=== PATIENT | male | born 1945 | race Hispanic/Latino ===

== ENCOUNTER 2021-04-28 07:42 | Day surgery (SDC) | payer MEDICARE ==
[2021-04-26 14:47] LABS: BASOPHILS % (AUTO) 0.8 % (0.0-5.0); EOSINOPHILS % (AUTO) 4.3 % (0.0-8.0); HEMATOCRIT 40.5 % (42-54); LYMPHOCYTES % (AUTO) 25.2 % (21.0-51.0); MEAN CORPUSCULAR HEMOGLOBIN 31.4 pg (27.0-33.0); MEAN CORPUSCULAR HGB CONC 33.8 g/dL (32.0-36.0); MEAN CORPUSCULAR VOLUME 92.9 fL (79-99); MONOCYTES % (AUTO) 11.4 % (3.0-13.0); NEUTROPHILS % (AUTO) 58.1 % (40.0-77.0); PLATELET COUNT (AUTO) 170 K/uL (130-400); RED BLOOD CELL COUNT(AUTO) 4.36 MIL/uL (4.50-6.20); RED CELL DISTRIBUTION WIDTH 12.9 % (11.0-15.5); WHITE BLOOD COUNT (AUTO) 5.1 K/uL (4.8-10.8)
[2021-04-26 14:51] LABS: APPEARANCE,URINE Clear (CLEAR); BILIRUBIN,URINE Negative (NEGATIVE); COLOR,URINE Yellow (YELLOW); GLUCOSE, URINE (UA) Negative (NEGATIVE); KETONES,URINE Negative (NEGATIVE); LEUKOCYTE ESTERASE ,URINE Negative (NEGATIVE); NITRATE,URINE Negative (NEGATIVE); OCCULT BLOOD,URINE Negative (NEGATIVE); PH,URINE 5.5 (5.0-8.0); PROTEIN,URINE POS 1+ mg/dL (NEGATIVE)
[2021-04-26 14:54] LABS: CREATININE 1.3 mg/dL (0.5-1.5); POTASSIUM 3.6 mmol/L (3.5-5.1)
[2021-04-26 14:57] LABS: INR 1.1 (0.85-1.15); PROTHROMBIN TIME 11.9 SEC (9.6-11.6)
[2021-04-26 14:58] LABS: PARTIAL THROMBOPLASTIN TIME 31.8 SEC (26.3-35.5)
[2021-04-26 15:24] LABS: BACTERIA,URINE Rare /HPF (None Seen); RBC,URINE 0-1 /HPF (0-1); SQUAMOUS EPITHELIAL CELL,UR Rare /HPF (0-2); WBC,URINE 0-1 /HPF (0-1)
[~2021-04-28] VITALS: Ht 182.9 cm; Wt 87.5 kg
[2021-04-28] VITALS (9 sets, daily range): BP systolic 119–157; BP diastolic 49–58
[~2021-04-28 07:42] MED LIST: AMLO2.5T4 PO; APIX2.5T PO; ATOR10TA69 PO; CHLOROTHALIDONE PO; LISI40TA9 PO; METO-391 PO
[2021-04-28] MEDS ORDERED: 0.9%NACL 1000ML 1,000 ML IV ONE (09:34)
[2021-04-28] MEDS ORDERED: BIVALIRUDIN 250 MG/VIAL IV ONE (13:02)
[2021-04-28] MEDS ORDERED: HEPARIN 10,000 UNIT/10ML (1,000 UNIT/ML) VIAL ONE (13:02)
[2021-04-28] MEDS ORDERED: LIDOCAINE HCL 400MG/20ML VIAL ONE (13:03)
[2021-04-28] MEDS ORDERED: IOHEXOL-350 50ML VIAL IV ONE ×2 (13:03→13:10)
[2021-04-28] MEDS ORDERED: IOHEXOL 350 MG/ML 100ML INFUS..BTL IV ONE (13:03)
[2021-04-28] MEDS ORDERED: NITROGLYCERIN 50MG VIAL IV ONE (13:03)
[2021-04-28] MEDS ORDERED: MEPERIDINE-PF 25 MG/ML SYG ONE ×2 (13:11→13:29)
[2021-04-28] MEDS ORDERED: MIDAZOLAM HCL 1 MG/ML 2ML VIAL ONE ×2 (13:11→13:29)
[2021-04-28] MEDS ORDERED: 0.9%NACL 1000ML 1,000 ML IV SCH (14:00)
[2021-06-30] MEDS ORDERED: APIX5TAB PO (16:58)
[2021-06-30] MEDS ORDERED: BIMA12.5OS OD (16:58)
[2021-06-30] MEDS ORDERED: CHLO25TA3 PO (16:58)
[2021-06-30] MEDS ORDERED: BRIM5DRO OP (16:58)
== END 2021-04-28 18:20 | disposition home or self-care (01) ==
LOC: DAH 07:42
PROVIDERS: ATTEND Internal Medicine Cardiovascular Disease
DX: I25.10 Atherosclerotic heart disease of native coronary artery without angina pectoris (principal); E78.5 Hyperlipidemia, unspecified; I11.0 Hypertensive heart disease with heart failure; I48.91 Unspecified atrial fibrillation; I35.1 Nonrheumatic aortic (valve) insufficiency; I50.9 Heart failure, unspecified; Z79.01 Long term (current) use of anticoagulants; Z79.899 Other long term (current) drug therapy
CPT/HCPCS: 36415; 71045; 80048; 81001; 85025; 85610; 85730; 93005; 93458; 93567; A4215; A4216; A4221; A4222; A4223 ×3; A4606; A4663; C1760; C1769; C1894 ×2; J1644; J2175 ×2; J2250 ×2; J3490 ×2; J7030; Q9965; Q9967 ×3; 99156; 99157; J0583

== ENCOUNTER → 2021-05-26 | Outpatient (CLI) | payer MEDICARE ==
[~2021-05-26] MED LIST changes: +IOHEXOL-350 75 ML VIAL IV ONE
== END | disposition home or self-care (01) ==
LOC: RAH 09:20
PROVIDERS: ATTEND Thoracic Surgery (Cardiothoracic Vascular Surgery)
DX: I71.2 Thoracic aortic aneurysm, without rupture (principal); M47.815 Spondylosis without myelopathy or radiculopathy, thoracolumbar region; I35.1 Nonrheumatic aortic (valve) insufficiency
CPT/HCPCS: 71275; Q9967

== ENCOUNTER 2021-07-01 06:41 | Day surgery (SDC) | payer MEDICARE ==
[2021-06-29 10:07] LABS: BASOPHILS % (AUTO) 0.9 % (0.0-5.0); EOSINOPHILS % (AUTO) 3.4 % (0.0-8.0); LYMPHOCYTES % (AUTO) 17.3 % (21.0-51.0); MEAN CORPUSCULAR HGB CONC 34.3 g/dL (32.0-36.0); MEAN CORPUSCULAR VOLUME 90.5 fL (79-99); MONOCYTES % (AUTO) 11.5 % (3.0-13.0); NEUTROPHILS % (AUTO) 66.7 % (40.0-77.0); PLATELET COUNT (AUTO) 190 K/uL (130-400); RED BLOOD CELL COUNT(AUTO) 4.42 MIL/uL (4.50-6.20); RED CELL DISTRIBUTION WIDTH 13.2 % (11.0-15.5); WHITE BLOOD COUNT (AUTO) 5.8 K/uL (4.8-10.8)
[2021-06-29 10:16] LABS: CREATININE 1.2 mg/dL (0.5-1.5); POTASSIUM 3.4 mmol/L (3.5-5.1)
[2021-06-29 10:17] LABS: INR 1.09 (0.85-1.15); PROTHROMBIN TIME 11.8 SEC (9.6-11.6)
[2021-06-29 10:19] LABS: PARTIAL THROMBOPLASTIN TIME 31.6 SEC (26.3-35.5)
[2021-06-30 13:31] VITALS: BP 119/50
[~2021-07-01] VITALS: Ht 188 cm; Wt 88.7 kg
[2021-07-01] VITALS (15 sets, daily range): BP systolic 111–144; BP diastolic 41–73
[~2021-07-01 06:41] MED LIST changes: -APIX2.5T PO; +APIX5TAB PO; +BIMA12.5OS OD; +BRIM5DRO OP; +CHLO25TA3 PO; -CHLOROTHALIDONE PO; -IOHEXOL-350 75 ML VIAL IV ONE
[2021-07-01] MEDS ORDERED: 0.9%NACL 1000ML 1,000 ML IV ONE (08:05)
[2021-07-01] MEDS ORDERED: LIDOCAINE HCL 2% VISCOUS 15 ML UDCUP ONE (08:23)
[2021-07-01] MEDS ORDERED: FLUMAZENIL 0.1MG/1ML 5ML VIAL IV ONE (08:26)
[2021-07-01] MEDS ORDERED: NALOXONE HCL 0.4 MG/1 ML ML ONE (08:26)
[2021-07-01] MEDS ORDERED: FENTANYL CITRATE PF 50 MCG/1 ML 2ML VIAL ONE (08:26)
[2021-07-01] MEDS ORDERED: MIDAZOLAM HCL 1 MG/ML 2ML VIAL ONE (08:27)
== END 2021-07-01 16:00 | disposition home or self-care (01) ==
LOC: DAH 06:41
PROVIDERS: ATTEND Internal Medicine Cardiovascular Disease
DX: I48.0 Paroxysmal atrial fibrillation (principal); I35.1 Nonrheumatic aortic (valve) insufficiency; I11.0 Hypertensive heart disease with heart failure; I50.9 Heart failure, unspecified; E78.5 Hyperlipidemia, unspecified; Z79.01 Long term (current) use of anticoagulants; Z79.899 Other long term (current) drug therapy; Z98.890 Other specified postprocedural states
CPT/HCPCS: 36415; 80048; 85025; 85610; 85730; 93005; 93313; A4215; A4216; A4221; A4222; A4223 ×3; A4606; A4615; A4663; A7002; J2250; J3010; J7030; 93312; 99152; J2310; J3490

== ENCOUNTER → 2021-11-16 | Outpatient (CLI) | payer MEDICARE ==
[~2021-11-16] MED LIST changes: -AMLO2.5T4 PO; +AMLO5TAB4 PO; -CHLO25TA3 PO; +FURO20TA6 PO; -LISI40TA9 PO; -METO-391 PO; +METO25 PO; +POTA-192 PO; +Sulfamethox-Tmp Ds 800/160 Tab PO
== END | disposition home or self-care (01) ==
LOC: SHCH 09:38
PROVIDERS: ATTEND Internal Medicine Cardiovascular Disease
DX: I08.3 Combined rheumatic disorders of mitral, aortic and tricuspid valves (principal); I11.9 Hypertensive heart disease without heart failure; E78.5 Hyperlipidemia, unspecified
CPT/HCPCS: 93306

== ENCOUNTER 2022-04-26 06:05 | Day surgery (SDC) | payer MEDICARE ==
[2022-04-25 13:04] LABS: BASOPHILS % (AUTO) 0.9 % (0.0-5.0); EOSINOPHILS % (AUTO) 3.3 % (0.0-8.0); HEMATOCRIT 43.8 % (42-54); LYMPHOCYTES % (AUTO) 20.4 % (21.0-51.0); MEAN CORPUSCULAR HEMOGLOBIN 31.1 pg (27.0-33.0); MEAN CORPUSCULAR HGB CONC 33.3 g/dL (32.0-36.0); MEAN CORPUSCULAR VOLUME 93.2 fL (79-99); MONOCYTES % (AUTO) 12.5 % (3.0-13.0); NEUTROPHILS % (AUTO) 62.7 % (40.0-77.0); PLATELET COUNT (AUTO) 198 K/uL (130-400); RED CELL DISTRIBUTION WIDTH 13.6 % (11.0-15.5); WHITE BLOOD COUNT (AUTO) 5.4 K/uL (4.8-10.8)
[2022-04-25 13:19] LABS: ALBUMIN 3.7 g/dL (3.5-5.0); CREATININE 1.6 mg/dL (0.5-1.5); POTASSIUM 3.7 mmol/L (3.5-5.1)
[2022-04-25 13:47] LABS: THYROID STIMULATING HORMONE 2.63 uIU/mL (0.36-3.74)
[2022-04-25 14:25] VITALS: BP 146/91
[~2022-04-26] VITALS: Ht 182.9 cm; Wt 91.2 kg
[2022-04-26] VITALS (21 sets, daily range): BP systolic 91–128; BP diastolic 55–88
[~2022-04-26 06:05] MED LIST changes: +AMIO200T68 PO; -AMLO5TAB4 PO; +ATOR10 PO; -ATOR10TA69 PO; +FURO20TA4 PO; -FURO20TA6 PO; -METO25 PO; +METO25TA6 PO; -POTA-192 PO; +POTA-79 PO; -Sulfamethox-Tmp Ds 800/160 Tab PO
[2022-04-26] MEDS ORDERED: 0.9%NACL 1000ML 1,000 ML IV ONE (06:33)
[2022-04-26] MEDS ORDERED: PROPOFOL 10 MG/ML 20ML VIAL IV ONE (08:12)
[2022-04-26] MEDS ORDERED: AMIO200T68 PO (08:53)
[2022-04-26] MEDS ORDERED: ACET-2123 PO (09:33)
== END 2022-04-26 10:20 | disposition home or self-care (01) ==
LOC: DAH 06:05
PROVIDERS: ATTEND Internal Medicine Cardiovascular Disease
DX: I48.19 Other persistent atrial fibrillation (principal); Z20.822 Contact with and (suspected) exposure to COVID-19; E66.9 Obesity, unspecified; I10 Essential (primary) hypertension; I42.8 Other cardiomyopathies; E78.5 Hyperlipidemia, unspecified; Z79.82 Long term (current) use of aspirin; Z79.899 Other long term (current) drug therapy; Z98.890 Other specified postprocedural states; Z68.26 Body mass index [BMI] 26.0-26.9, adult
CPT/HCPCS: 87426; 84443; 80053; 85025; 36415; 92960; 93005 ×2; J7030; J2704; A4215; A4222; A4221; A4663; A4216; A4606; A4223 ×3; 99152

== ENCOUNTER 2022-07-27 10:45 | Inpatient (IN) | payer OTHER, MEDICARE ==
[~2022-07-27] VITALS: Ht 188 cm; Wt 77.8 kg
[2022-07-27 11:25] LABS: BASOPHILS % (AUTO) 0.2 % (0.0-5.0); EOSINOPHILS % (AUTO) 0.3 % (0.0-8.0); LYMPHOCYTES % (AUTO) 8.6 % (21.0-51.0); MEAN CORPUSCULAR HEMOGLOBIN 31.7 pg (27.0-33.0); MEAN CORPUSCULAR HGB CONC 34.1 g/dL (32.0-36.0); MONOCYTES % (AUTO) 7.8 % (3.0-13.0); NEUTROPHILS % (AUTO) 82.2 % (40.0-77.0); PLATELET COUNT (AUTO) 137 K/uL (130-400); RED BLOOD CELL COUNT(AUTO) 3.44 MIL/uL (4.50-6.20); RED CELL DISTRIBUTION WIDTH 13.9 % (11.0-15.5); WHITE BLOOD COUNT (AUTO) 14.6 K/uL (4.8-10.8)
[2022-07-27 11:40] LABS: CREATININE 1.9 mg/dL (0.5-1.5); POTASSIUM 4.3 mmol/L (3.5-5.1)
[2022-07-27 11:46] LABS: ALBUMIN 2.6 g/dL (3.5-5.0); TOTAL PROTEIN, SERUM 7.1 g/dL (6.0-8.3)
[2022-07-27 12:08] LABS: APPEARANCE,URINE CLOUDY (CLEAR); BILIRUBIN,URINE NEGATIVE (NEGATIVE); COLOR,URINE YELLOW (YELLOW); GLUCOSE, URINE (UA) NEGATIVE (NEGATIVE); KETONES,URINE NEGATIVE (NEGATIVE); LEUKOCYTE ESTERASE ,URINE 500 Leu/uL (NEGATIVE); NITRATE,URINE NEGATIVE (NEGATIVE); OCCULT BLOOD,URINE NEGATIVE (NEGATIVE); PROTEIN,URINE 10 mg/dL (NEGATIVE); UROBILINOGEN,URINE 0.2 mg/dL (0.2-1.0)
[2022-07-27 12:12] LABS: BACTERIA,URINE FEW /HPF (None Seen); MUCUS,URINE RARE LPF (None Seen); SQUAMOUS EPITHELIAL CELL,UR RARE /HPF (0-2); WBC,URINE 26-50 /HPF (0-1)
[2022-07-27] MEDS ORDERED: 0.9% NACL 250ML 250 ML IV SCH (13:00)
[2022-07-27] MEDS ORDERED: CEFTRIAXONE 1G VIAL IV SCH (16:00)
[2022-07-27] MEDS ORDERED: GUAIFENESIN-DM 200/20 MG 10 ML PO PRN (16:00)
[2022-07-27] MEDS ORDERED: POTASSIUM CHLORIDE 20MEQ/100ML 100 ML IV PRN (16:00)
[2022-07-27] MEDS ORDERED: GLUCAGON 1MG KIT 1 MG ML IM PRN (16:00)
[2022-07-27] MEDS ORDERED: HYDROMORPHONE 1 MG INJ IV PRN (16:00)
[2022-07-27] MEDS ORDERED: NITROGLYCERIN 0.4 MG SL TAB SL PRN (16:00)
[2022-07-27] MEDS ORDERED: LACTULOSE 20 GM/30 ML UDCUP PO PRN (16:00)
[2022-07-27] MEDS ORDERED: LIDOCAINE HCL-MPF 1% 2ML VIAL IV PRN (16:00)
[2022-07-27] MEDS ORDERED: DiphenhydrAMINE HCL 50 MG/ML VIAL IV PRN (16:00)
[2022-07-27] MEDS ORDERED: KCL 20 MEQ ERTAB PO PRN (16:00)
[2022-07-27] MEDS ORDERED: MAG/ALUM/SIMETH 30 ML UDCUP PO PRN (16:00)
[2022-07-27] MEDS ORDERED: ACETAMINOPHEN 325 MG TAB PO PRN (16:00)
[2022-07-27] MEDS ORDERED: MAGNESIUM 2GM PREMIX 50ML 50 ML IV PRN (16:00)
[2022-07-27] MEDS ORDERED: HYDROCODONE/ACETAMINOPHEN 5/325 MG TAB PO PRN ×2 (16:00)
[2022-07-27] MEDS ORDERED: DIPHENHYDRAMINE HCL 25 MG CAPSULE PO PRN (16:00)
[2022-07-27] MEDS ORDERED: ONDANSETRON 4MG INJ IV PRN (16:00)
[2022-07-27] MEDS ORDERED: DEXTROSE 50%-WATER 50 ML DISP.SYRIN IV PRN (16:00)
[2022-07-27] MEDS: 0.9%NACL 1000ML 1,000 ML IV SCH ×2 (16:07→23:09)
[2022-07-27] MEDS: FAMOTIDINE 20MG TAB PO SCH (16:08)
[2022-07-27] MEDS: INSULIN HUMULIN R 100 UNIT/ML 3ML SQ SCH ×2 (16:23→20:51)
[2022-07-27] MEDS ORDERED: FAMOTIDINE 20MG VIAL IV SCH (21:00)
[2022-07-27] MEDS ORDERED: HEPARIN 5,000 UNIT VIAL SQ SCH (21:00)
[2022-07-27 22:10] VITALS: BP 103/72
[2022-07-27] MEDS ORDERED: SENN8.6T32 PO (23:09)
[2022-07-27] MEDS ORDERED: ATOR10 PO (23:09)
[2022-07-27] MEDS ORDERED: ASPI-1197 PO (23:09)
[2022-07-27] MEDS ORDERED: DULO30CA52 PO (23:09)
[2022-07-27] MEDS ORDERED: POLY17PO4 PO (23:09)
[2022-07-27] MEDS ORDERED: GABA-529 PO (23:09)
[2022-07-27] MEDS ORDERED: SPIR25TA6 PO (23:09)
[2022-07-27] MEDS ORDERED: LUBI24CA9 PO (23:09)
[2022-07-27] MEDS ORDERED: SIME125C81 PO (23:09)
[2022-07-27] MEDS ORDERED: FURO40TA5 PO (23:09)
[2022-07-27] MEDS ORDERED: DRON10CA5 PO (23:09)
[2022-07-27] MEDS ORDERED: POTA-79 PO (23:09)
[2022-07-27] MEDS ORDERED: APIX2.5T PO (23:09)
[2022-07-27] MEDS ORDERED: LATA7.5D OP (23:09)
[2022-07-27] MEDS ORDERED: PANT40TA54 PO (23:09)
[2022-07-27] MEDS ORDERED: FOLI0.4T6 PO (23:09)
[2022-07-27] MEDS ORDERED: TAMS-1 PO (23:09)
[2022-07-27] MEDS ORDERED: DOCU100C33 PO (23:09)
[2022-07-28 03:45] VITALS: BP 97/62
[2022-07-28 05:28] LABS: BASOPHILS % (AUTO) 0.2 % (0.0-5.0); EOSINOPHILS % (AUTO) 0.9 % (0.0-8.0); HEMATOCRIT 29.6 % (42-54); LYMPHOCYTES % (AUTO) 8.8 % (21.0-51.0); MEAN CORPUSCULAR HEMOGLOBIN 31.1 pg (27.0-33.0); MEAN CORPUSCULAR HGB CONC 33.1 g/dL (32.0-36.0); MONOCYTES % (AUTO) 7.2 % (3.0-13.0); NEUTROPHILS % (AUTO) 82.2 % (40.0-77.0); PLATELET COUNT (AUTO) 137 K/uL (130-400); RED BLOOD CELL COUNT(AUTO) 3.15 MIL/uL (4.50-6.20); RED CELL DISTRIBUTION WIDTH 14.1 % (11.0-15.5)
[2022-07-28 05:38] LABS: INR 1.07 (0.85-1.15); PROTHROMBIN TIME 11.6 SEC (9.6-11.6)
[2022-07-28 05:40] LABS: PARTIAL THROMBOPLASTIN TIME 34.3 SEC (26.3-35.5)
[2022-07-28 05:51] LABS: ALBUMIN 2.2 g/dL (3.5-5.0); CREATININE 1.4 mg/dL (0.5-1.5); MAGNESIUM 1.9 mg/dL (1.80-2.40); PHOSPHORUS 3.9 mg/dL (2.5-4.9); POTASSIUM 3.9 mmol/L (3.5-5.1); THYROID STIMULATING HORMONE 2.15 uIU/mL (0.36-3.74); TOTAL PROTEIN, SERUM 6.4 g/dL (6.0-8.3)
[2022-07-28] MEDS: INSULIN HUMULIN R 100 UNIT/ML 3ML SQ SCH ×3 (06:18→21:00)
[2022-07-28] MEDS: 0.9%NACL 1000ML 1,000 ML IV SCH (06:18)
[2022-07-28 08:00] VITALS: BP 94/63
[2022-07-28] MEDS: LUBIPROSTONE 24 MCG CAP PO SCH ×3 (09:35→21:02)
[2022-07-28] MEDS: ASPIRIN 81MG CHEW TAB PO SCH (09:35)
[2022-07-28] MEDS: FAMOTIDINE 20MG TAB PO SCH (09:35)
[2022-07-28] MEDS: FUROSEMIDE 40 MG TABLET PO SCH ×2 (09:36→21:01)
[2022-07-28] MEDS: TAMSULOSIN HCL 0.4 MG CAP.ER.24H PO SCH (09:37)
[2022-07-28] MEDS: KCL 20 MEQ ERTAB PO SCH (09:37)
[2022-07-28] MEDS: FOLIC ACID 1 MG TABLET PO SCH (09:38)
[2022-07-28] MEDS: APIXABAN 2.5 MG TABLET PO SCH ×2 (09:38→21:02)
[2022-07-28] MEDS: POLYETHYLENE GLYCOL 3350 17 GM POWD.PACK PO SCH (09:38)
[2022-07-28] MEDS: DULOXETINE HCL 30 MG CAP PO SCH (09:39)
[2022-07-28] MEDS: DOCUSATE SODIUM 100 MG CAP PO SCH ×4 (09:39→21:02)
[2022-07-28] MEDS: GABAPENTIN 300 MG CAPSULE PO SCH ×2 (09:40→21:02)
[2022-07-28 12:00] VITALS: BP 85/63
[2022-07-28] MEDS: ZOSYN 3.375GM +NS 50ML IVPB SCH ×2 (14:41→21:03)
[2022-07-28] MEDS: ACETAMINOPHEN 325 MG TAB PO PRN (15:48)
[2022-07-28 16:00] VITALS: BP 116/76
[2022-07-28 20:00] VITALS: BP 92/64
[2022-07-28] MEDS: LATANOPROST 2.5 ML DROPS OP SCH (21:00)
[2022-07-28] MEDS: ATORVASTATIN 10 MG TABLET PO SCH (21:01)
[2022-07-28] MEDS: SPIRONOLACTONE 25 MG TAB PO SCH (21:02)
[2022-07-28 23:25] VITALS: BP 92/62
[2022-07-29] MEDS: 0.9%NACL 1000ML 1,000 ML IV SCH ×5 (00:20→22:24)
[2022-07-29 03:59] VITALS: BP 97/64
[2022-07-29] MEDS: ZOSYN 3.375GM +NS 50ML IVPB SCH (05:23)
[2022-07-29 05:45] LABS: BASOPHILS % (AUTO) 0.4 % (0.0-5.0); EOSINOPHILS % (AUTO) 3.3 % (0.0-8.0); HEMATOCRIT 28.8 % (42-54); LYMPHOCYTES % (AUTO) 8.5 % (21.0-51.0); MEAN CORPUSCULAR HEMOGLOBIN 31.5 pg (27.0-33.0); MEAN CORPUSCULAR HGB CONC 32.6 g/dL (32.0-36.0); MEAN CORPUSCULAR VOLUME 96.6 fL (79-99); MONOCYTES % (AUTO) 9.8 % (3.0-13.0); NEUTROPHILS % (AUTO) 77.3 % (40.0-77.0); PLATELET COUNT (AUTO) 135 K/uL (130-400); RED BLOOD CELL COUNT(AUTO) 2.98 MIL/uL (4.50-6.20); RED CELL DISTRIBUTION WIDTH 13.7 % (11.0-15.5); WHITE BLOOD COUNT (AUTO) 6.9 K/uL (4.8-10.8)
[2022-07-29 06:04] LABS: ALBUMIN 2.1 g/dL (3.5-5.0); CREATININE 1.4 mg/dL (0.5-1.5); MAGNESIUM 1.9 mg/dL (1.80-2.40); POTASSIUM 3.6 mmol/L (3.5-5.1); TOTAL PROTEIN, SERUM 6.2 g/dL (6.0-8.3)
[2022-07-29] MEDS: INSULIN HUMULIN R 100 UNIT/ML 3ML SQ SCH ×4 (06:48→21:00)
[2022-07-29 08:00] VITALS: BP 98/62
[2022-07-29] MEDS: POLYETHYLENE GLYCOL 3350 17 GM POWD.PACK PO SCH ×2 (09:00→09:15)
[2022-07-29] MEDS: DOCUSATE SODIUM 100 MG CAP PO SCH ×4 (09:00→21:00)
[2022-07-29] MEDS: FUROSEMIDE 40 MG TABLET PO SCH ×2 (09:09→22:19)
[2022-07-29] MEDS: FAMOTIDINE 20MG TAB PO SCH (09:10)
[2022-07-29] MEDS: GABAPENTIN 300 MG CAPSULE PO SCH ×2 (09:10→22:19)
[2022-07-29] MEDS: KCL 20 MEQ ERTAB PO SCH (09:13)
[2022-07-29] MEDS: TAMSULOSIN HCL 0.4 MG CAP.ER.24H PO SCH (09:15)
[2022-07-29] MEDS: APIXABAN 2.5 MG TABLET PO SCH (09:17)
[2022-07-29] MEDS: LUBIPROSTONE 24 MCG CAP PO SCH ×2 (09:35→21:00)
[2022-07-29] MEDS: ASPIRIN 81MG CHEW TAB PO SCH (09:36)
[2022-07-29] MEDS: FOLIC ACID 1 MG TABLET PO SCH (09:36)
[2022-07-29] MEDS: DULOXETINE HCL 30 MG CAP PO SCH (09:36)
[2022-07-29] MEDS: MEROPENEM 1 GM VIAL IVPB SCH ×2 (11:07→22:15)
[2022-07-29 11:36] LABS: INR 1.1 (0.85-1.15); PROTHROMBIN TIME 11.9 SEC (9.6-11.6)
[2022-07-29 11:37] LABS: PARTIAL THROMBOPLASTIN TIME 33.6 SEC (26.3-35.5)
[2022-07-29 12:00] VITALS: BP 102/71
[2022-07-29] MEDS: OXYMETAZOLINE HCL SPRAY 15 ML BOTTLE EN SCH ×2 (13:35→21:00)
[2022-07-29] MEDS: ACETAMINOPHEN 325 MG TAB PO PRN (15:13)
[2022-07-29 16:00] VITALS: BP 135/65
[2022-07-29] MEDS ORDERED: COMB5OS OD (16:20)
[2022-07-29 19:50] VITALS: BP 115/78
[2022-07-29] MEDS ORDERED: OXYMETAZOLINE HCL SPRAY 15 ML BOTTLE EN SCH (21:00)
[2022-07-29] MEDS: ATORVASTATIN 10 MG TABLET PO SCH (22:19)
[2022-07-29] MEDS: SPIRONOLACTONE 25 MG TAB PO SCH (22:19)
[2022-07-29] MEDS: LATANOPROST 2.5 ML DROPS OP SCH (22:23)
[2022-07-29] MEDS: BRIMONIDINE TARTRATE 0.2% 5 ML BOTTLE OD SCH (22:24)
[2022-07-29] MEDS: TIMOLOL MALEATE 0.5% 5 ML BOTTLE OD SCH (22:24)
[2022-07-29 23:17] VITALS: BP 110/74
[2022-07-30 00:44] LABS: HEMATOCRIT 26.9 % (42-54)
[2022-07-30 03:36] VITALS: BP 103/72
[2022-07-30] MEDS: MEROPENEM 1 GM VIAL IVPB SCH ×3 (03:46→18:08)
[2022-07-30 04:45] LABS: BASOPHILS % (AUTO) 0.6 % (0.0-5.0); LYMPHOCYTES % (AUTO) 18.2 % (21.0-51.0); MEAN CORPUSCULAR HEMOGLOBIN 30.9 pg (27.0-33.0); MEAN CORPUSCULAR HGB CONC 32.6 g/dL (32.0-36.0); MEAN CORPUSCULAR VOLUME 94.7 fL (79-99); MONOCYTES % (AUTO) 14.9 % (3.0-13.0); NEUTROPHILS % (AUTO) 57.4 % (40.0-77.0); PLATELET COUNT (AUTO) 166 K/uL (130-400); RED BLOOD CELL COUNT(AUTO) 2.85 MIL/uL (4.50-6.20); WHITE BLOOD COUNT (AUTO) 4.6 K/uL (4.8-10.8)
[2022-07-30 04:58] LABS: CREATININE 1.3 mg/dL (0.5-1.5); POTASSIUM 3.5 mmol/L (3.5-5.1)
[2022-07-30] MEDS: INSULIN HUMULIN R 100 UNIT/ML 3ML SQ SCH ×4 (06:45→20:19)
[2022-07-30 07:00] VITALS: BP 104/72
[2022-07-30] MEDS: POLYETHYLENE GLYCOL 3350 17 GM POWD.PACK PO SCH (09:00)
[2022-07-30] MEDS: LUBIPROSTONE 24 MCG CAP PO SCH ×2 (09:00→20:05)
[2022-07-30] MEDS: DOCUSATE SODIUM 100 MG CAP PO SCH ×3 (09:00→20:04)
[2022-07-30] MEDS: FAMOTIDINE 20MG TAB PO SCH (09:08)
[2022-07-30] MEDS: FOLIC ACID 1 MG TABLET PO SCH (09:08)
[2022-07-30] MEDS: DULOXETINE HCL 30 MG CAP PO SCH (09:08)
[2022-07-30] MEDS: GABAPENTIN 300 MG CAPSULE PO SCH ×2 (09:08→20:04)
[2022-07-30] MEDS: KCL 20 MEQ ERTAB PO SCH (09:09)
[2022-07-30] MEDS: ASPIRIN 81MG CHEW TAB PO SCH (09:09)
[2022-07-30] MEDS: TAMSULOSIN HCL 0.4 MG CAP.ER.24H PO SCH (09:09)
[2022-07-30] MEDS: FUROSEMIDE 40 MG TABLET PO SCH ×2 (09:09→20:03)
[2022-07-30] MEDS: BRIMONIDINE TARTRATE 0.2% 5 ML BOTTLE OD SCH ×2 (09:12→20:11)
[2022-07-30] MEDS: TIMOLOL MALEATE 0.5% 5 ML BOTTLE OD SCH ×2 (09:12→20:11)
[2022-07-30 11:45] VITALS: BP 126/80
[2022-07-30 15:36] VITALS: BP 159/78
[2022-07-30] MEDS: SPIRONOLACTONE 25 MG TAB PO SCH (20:03)
[2022-07-30] MEDS: ACETAMINOPHEN 325 MG TAB PO PRN (20:03)
[2022-07-30] MEDS: ATORVASTATIN 10 MG TABLET PO SCH (20:03)
[2022-07-30 20:04] VITALS: BP 154/77
[2022-07-30] MEDS: POTASSIUM CHLORIDE 10% ELIXIR 20 MEQ/15 ML UDCUP PO PRN ×2 (20:04→21:26)
[2022-07-30] MEDS: LATANOPROST 2.5 ML DROPS OP SCH (20:12)
[2022-07-30 23:29] VITALS: BP 95/64
[2022-07-31] MEDS: MEROPENEM 1 GM VIAL IVPB SCH ×3 (03:15→18:42)
[2022-07-31 03:37] VITALS: BP 97/68
[2022-07-31 06:08] LABS: BASOPHILS % (AUTO) 0.7 % (0.0-5.0); EOSINOPHILS % (AUTO) 10.6 % (0.0-8.0); HEMATOCRIT 30.6 % (42-54); LYMPHOCYTES % (AUTO) 23.9 % (21.0-51.0); MEAN CORPUSCULAR HEMOGLOBIN 31.1 pg (27.0-33.0); MEAN CORPUSCULAR VOLUME 94.2 fL (79-99); MONOCYTES % (AUTO) 16.1 % (3.0-13.0); NEUTROPHILS % (AUTO) 47.6 % (40.0-77.0); PLATELET COUNT (AUTO) 192 K/uL (130-400); RED BLOOD CELL COUNT(AUTO) 3.25 MIL/uL (4.50-6.20); RED CELL DISTRIBUTION WIDTH 13.9 % (11.0-15.5); WHITE BLOOD COUNT (AUTO) 4.4 K/uL (4.8-10.8)
[2022-07-31 06:24] LABS: ALBUMIN 2.2 g/dL (3.5-5.0); CREATININE 1.2 mg/dL (0.5-1.5); MAGNESIUM 1.9 mg/dL (1.80-2.40); POTASSIUM 3.7 mmol/L (3.5-5.1); TOTAL PROTEIN, SERUM 6.4 g/dL (6.0-8.3)
[2022-07-31 07:48] VITALS: BP 150/76
[2022-07-31] MEDS: POLYETHYLENE GLYCOL 3350 17 GM POWD.PACK PO SCH (09:00)
[2022-07-31] MEDS: TIMOLOL MALEATE 0.5% 5 ML BOTTLE OD SCH ×2 (09:00→20:33)
[2022-07-31] MEDS: DOCUSATE SODIUM 100 MG CAP PO SCH ×3 (09:00→20:32)
[2022-07-31] MEDS: BRIMONIDINE TARTRATE 0.2% 5 ML BOTTLE OD SCH ×2 (09:00→20:33)
[2022-07-31] MEDS: LUBIPROSTONE 24 MCG CAP PO SCH ×2 (09:00→20:32)
[2022-07-31] MEDS: TAMSULOSIN HCL 0.4 MG CAP.ER.24H PO SCH (09:25)
[2022-07-31] MEDS: DULOXETINE HCL 30 MG CAP PO SCH (09:25)
[2022-07-31] MEDS: ASPIRIN 81MG CHEW TAB PO SCH (09:25)
[2022-07-31] MEDS: KCL 20 MEQ ERTAB PO SCH (09:25)
[2022-07-31] MEDS: FAMOTIDINE 20MG TAB PO SCH (09:26)
[2022-07-31] MEDS: FUROSEMIDE 40 MG TABLET PO SCH ×2 (09:26→20:32)
[2022-07-31] MEDS: FOLIC ACID 1 MG TABLET PO SCH (09:26)
[2022-07-31] MEDS: GABAPENTIN 300 MG CAPSULE PO SCH ×2 (09:26→20:32)
[2022-07-31 11:05] VITALS: BP 142/84
[2022-07-31] MEDS: INSULIN HUMULIN R 100 UNIT/ML 3ML SQ SCH ×3 (11:30→20:30)
[2022-07-31 13:46] VITALS: BP 142/84
[2022-07-31 15:35] VITALS: BP 122/90
[2022-07-31 20:00] VITALS: BP 110/76
[2022-07-31] MEDS: SPIRONOLACTONE 25 MG TAB PO SCH (20:32)
[2022-07-31] MEDS: ATORVASTATIN 10 MG TABLET PO SCH (20:33)
[2022-07-31] MEDS: LATANOPROST 2.5 ML DROPS OP SCH (20:33)
[2022-08-01] VITALS: BP 109/76
[2022-08-01] MEDS: MEROPENEM 1 GM VIAL IVPB SCH ×3 (02:33→18:15)
[2022-08-01 04:00] VITALS: BP 96/65
[2022-08-01 05:55] LABS: BASOPHILS % (AUTO) 0.6 % (0.0-5.0); EOSINOPHILS % (AUTO) 9.9 % (0.0-8.0); HEMATOCRIT 31.6 % (42-54); LYMPHOCYTES % (AUTO) 30.3 % (21.0-51.0); MEAN CORPUSCULAR HEMOGLOBIN 30.8 pg (27.0-33.0); MEAN CORPUSCULAR HGB CONC 33.2 g/dL (32.0-36.0); MEAN CORPUSCULAR VOLUME 92.7 fL (79-99); MONOCYTES % (AUTO) 16.4 % (3.0-13.0); NEUTROPHILS % (AUTO) 41.3 % (40.0-77.0); PLATELET COUNT (AUTO) 213 K/uL (130-400); RED BLOOD CELL COUNT(AUTO) 3.41 MIL/uL (4.50-6.20); RED CELL DISTRIBUTION WIDTH 13.9 % (11.0-15.5); WHITE BLOOD COUNT (AUTO) 5.4 K/uL (4.8-10.8)
[2022-08-01] MEDS: INSULIN HUMULIN R 100 UNIT/ML 3ML SQ SCH ×4 (05:59→19:51)
[2022-08-01 06:35] LABS: ALBUMIN 2.3 g/dL (3.5-5.0); CREATININE 1.2 mg/dL (0.5-1.5); MAGNESIUM 1.9 mg/dL (1.80-2.40); POTASSIUM 3.9 mmol/L (3.5-5.1); TOTAL PROTEIN, SERUM 6.5 g/dL (6.0-8.3)
[2022-08-01 08:38] VITALS: BP 104/71
[2022-08-01] MEDS: POLYETHYLENE GLYCOL 3350 17 GM POWD.PACK PO SCH (09:00)
[2022-08-01] MEDS: DOCUSATE SODIUM 100 MG CAP PO SCH ×3 (09:00→19:49)
[2022-08-01] MEDS: FOLIC ACID 1 MG TABLET PO SCH (10:31)
[2022-08-01] MEDS: LUBIPROSTONE 24 MCG CAP PO SCH ×2 (10:31→19:49)
[2022-08-01] MEDS: FAMOTIDINE 20MG TAB PO SCH (10:31)
[2022-08-01] MEDS: ASPIRIN 81MG CHEW TAB PO SCH (10:31)
[2022-08-01] MEDS: KCL 20 MEQ ERTAB PO SCH (10:32)
[2022-08-01] MEDS: DULOXETINE HCL 30 MG CAP PO SCH (10:32)
[2022-08-01] MEDS: TAMSULOSIN HCL 0.4 MG CAP.ER.24H PO SCH (10:32)
[2022-08-01] MEDS: GABAPENTIN 300 MG CAPSULE PO SCH ×2 (10:32→19:49)
[2022-08-01] MEDS: TIMOLOL MALEATE 0.5% 5 ML BOTTLE OD SCH ×2 (10:33→19:50)
[2022-08-01] MEDS: FUROSEMIDE 40 MG TABLET PO SCH ×2 (10:33→19:50)
[2022-08-01] MEDS: BRIMONIDINE TARTRATE 0.2% 5 ML BOTTLE OD SCH ×2 (10:34→19:50)
[2022-08-01 12:37] VITALS: BP 101/75
[2022-08-01 16:25] VITALS: BP 108/79
[2022-08-01] MEDS: LATANOPROST 2.5 ML DROPS OP SCH (19:50)
[2022-08-01] MEDS: ATORVASTATIN 10 MG TABLET PO SCH (19:50)
[2022-08-01] MEDS: SPIRONOLACTONE 25 MG TAB PO SCH (19:50)
[2022-08-01 20:00] VITALS: BP 107/69
[2022-08-01] MEDS ORDERED: APIXABAN 2.5 MG TABLET PO ONE (22:09)
[2022-08-01] MEDS: APIXABAN 2.5 MG TABLET PO SCH (22:16)
[2022-08-02] VITALS: BP 98/65
[2022-08-02] MEDS: MEROPENEM 1 GM VIAL IVPB SCH ×3 (01:41→18:30)
[2022-08-02 04:00] VITALS: BP 96/64
[2022-08-02 05:31] LABS: BASOPHILS % (AUTO) 0.8 % (0.0-5.0); EOSINOPHILS % (AUTO) 9.1 % (0.0-8.0); HEMATOCRIT 33.8 % (42-54); LYMPHOCYTES % (AUTO) 33.7 % (21.0-51.0); MEAN CORPUSCULAR HEMOGLOBIN 31.3 pg (27.0-33.0); MEAN CORPUSCULAR HGB CONC 32.2 g/dL (32.0-36.0); MEAN CORPUSCULAR VOLUME 97.1 fL (79-99); NEUTROPHILS % (AUTO) 41.1 % (40.0-77.0); PLATELET COUNT (AUTO) 253 K/uL (130-400); RED BLOOD CELL COUNT(AUTO) 3.48 MIL/uL (4.50-6.20); WHITE BLOOD COUNT (AUTO) 4.9 K/uL (4.8-10.8)
[2022-08-02 05:51] LABS: ALBUMIN 2.4 g/dL (3.5-5.0); CREATININE 1.3 mg/dL (0.5-1.5); MAGNESIUM 1.9 mg/dL (1.80-2.40); POTASSIUM 3.6 mmol/L (3.5-5.1); TOTAL PROTEIN, SERUM 6.8 g/dL (6.0-8.3)
[2022-08-02] MEDS: INSULIN HUMULIN R 100 UNIT/ML 3ML SQ SCH ×3 (06:26→16:30)
[2022-08-02 08:00] VITALS: BP 91/66
[2022-08-02] MEDS: BRIMONIDINE TARTRATE 0.2% 5 ML BOTTLE OD SCH (09:00)
[2022-08-02] MEDS: TIMOLOL MALEATE 0.5% 5 ML BOTTLE OD SCH (09:00)
[2022-08-02] MEDS: DULOXETINE HCL 30 MG CAP PO SCH (09:09)
[2022-08-02] MEDS: FUROSEMIDE 40 MG TABLET PO SCH (09:10)
[2022-08-02] MEDS: LUBIPROSTONE 24 MCG CAP PO SCH (09:10)
[2022-08-02] MEDS: ASPIRIN 81MG CHEW TAB PO SCH (09:10)
[2022-08-02] MEDS: DOCUSATE SODIUM 100 MG CAP PO SCH ×2 (09:10→14:41)
[2022-08-02] MEDS: GABAPENTIN 300 MG CAPSULE PO SCH (09:11)
[2022-08-02] MEDS: FOLIC ACID 1 MG TABLET PO SCH (09:11)
[2022-08-02] MEDS: FAMOTIDINE 20MG TAB PO SCH (09:11)
[2022-08-02] MEDS: POLYETHYLENE GLYCOL 3350 17 GM POWD.PACK PO SCH (09:12)
[2022-08-02] MEDS: KCL 20 MEQ ERTAB PO SCH (09:12)
[2022-08-02] MEDS: TAMSULOSIN HCL 0.4 MG CAP.ER.24H PO SCH (09:12)
[2022-08-02 11:28] VITALS: BP 92/72
[2022-08-02] MEDS ORDERED: APIXABAN 2.5 MG TABLET PO SCH (13:00)
[2022-08-02] MEDS: APIXABAN 2.5 MG TABLET PO SCH (13:33)
[2022-08-02 16:00] VITALS: BP 103/75
== END 2022-08-02 20:06 | DRG 871 ==
LOC: EDH 10:45 → EDHIP 15:40 → 3AH 22:45
PROVIDERS: ADMIT Internal Medicine; ATTEND Internal Medicine
DX: A41.59 Other Gram-negative sepsis (principal); E43 Unspecified severe protein-calorie malnutrition; N17.0 Acute kidney failure with tubular necrosis; J96.01 Acute respiratory failure with hypoxia; E87.1 Hypo-osmolality and hyponatremia; N30.00 Acute cystitis without hematuria; I95.9 Hypotension, unspecified; I10 Essential (primary) hypertension; E78.5 Hyperlipidemia, unspecified; I48.0 Paroxysmal atrial fibrillation; I35.0 Nonrheumatic aortic (valve) stenosis; E11.9 Type 2 diabetes mellitus without complications; D64.9 Anemia, unspecified; I25.10 Atherosclerotic heart disease of native coronary artery without angina pectoris; Z86.79 Personal history of other diseases of the circulatory system; Z95.0 Presence of cardiac pacemaker; Z95.3 Presence of xenogenic heart valve; Z79.01 Long term (current) use of anticoagulants; Z68.22 Body mass index [BMI] 22.0-22.9, adult
CPT/HCPCS: 36415; 71045; 80053; 81001; 82948; 83605; 83735; 84100; 84145; 84443; 84484; 85014; 85018; 85025; 85610; 85651; 85730; 86140; 87040; 87077; 87088; 87186; 93005; 93306; 97039; G0378; J0696; J1644; J2185; J2543; J7030

== ENCOUNTER 2022-08-12 14:36 | Emergency (ER) | payer OTHER, MEDICARE ==
[~2022-08-12] VITALS: Ht 188 cm; Wt 83.0 kg
[~2022-08-12 14:36] MED LIST changes: -AMIO200T68 PO; +APIX2.5T PO; -APIX5TAB PO; +ASPI-1197 PO; -BIMA12.5OS OD; -BRIM5DRO OP; +COMB5OS OD; +DOCU100C33 PO; +DRON10CA5 PO; +DULO30CA52 PO; +FOLI0.4T6 PO; -FURO20TA4 PO; +FURO40TA5 PO; +GABA-529 PO; +LATA7.5D OP; +LUBI24CA9 PO; -METO25TA6 PO; +PANT40TA54 PO; +POLY17PO4 PO; +SENN8.6T32 PO; +SIME125C81 PO; +SPIR25TA6 PO; +TAMS-1 PO
[2022-08-12] MEDS ORDERED: 0.9%NACL 1000ML 1,000 ML IV ONE (15:00)
[2022-08-12 15:28] LABS: APPEARANCE,URINE CLEAR (CLEAR); BILIRUBIN,URINE NEGATIVE (NEGATIVE); COLOR,URINE LIGHT-YELLOW (YELLOW); GLUCOSE, URINE (UA) NEGATIVE (NEGATIVE); KETONES,URINE NEGATIVE (NEGATIVE); LEUKOCYTE ESTERASE ,URINE 75 Leu/uL (NEGATIVE); NITRATE,URINE NEGATIVE (NEGATIVE); OCCULT BLOOD,URINE NEGATIVE (NEGATIVE); PROTEIN,URINE NEGATIVE (NEGATIVE); UROBILINOGEN,URINE 0.2 mg/dL (0.2-1.0)
[2022-08-12 15:35] LABS: BACTERIA,URINE FEW /HPF (None Seen); CALCIUM OXALATE CRYSTALS,UR FEW /LPF (None Seen); MUCUS,URINE RARE LPF (None Seen); OTHER CASTS, URINE 3 /LPF (None Seen); SQUAMOUS EPITHELIAL CELL,UR RARE /HPF (0-2)
[2022-08-12 16:32] LABS: BASOPHILS % (AUTO) 1.3 % (0.0-5.0); EOSINOPHILS % (AUTO) 2.9 % (0.0-8.0); HEMATOCRIT 34.7 % (42-54); LYMPHOCYTES % (AUTO) 28.8 % (21.0-51.0); MEAN CORPUSCULAR HEMOGLOBIN 31.5 pg (27.0-33.0); MEAN CORPUSCULAR VOLUME 92.5 fL (79-99); MONOCYTES % (AUTO) 13.5 % (3.0-13.0); NEUTROPHILS % (AUTO) 53.2 % (40.0-77.0); PLATELET COUNT (AUTO) 264 K/uL (130-400); RED BLOOD CELL COUNT(AUTO) 3.75 MIL/uL (4.50-6.20); RED CELL DISTRIBUTION WIDTH 14.1 % (11.0-15.5); WHITE BLOOD COUNT (AUTO) 6.2 K/uL (4.8-10.8)
[2022-08-12 16:43] LABS: CREATININE 1.6 mg/dL (0.5-1.5); POTASSIUM 4.3 mmol/L (3.5-5.1)
[2022-08-12 16:47] LABS: TOTAL PROTEIN, SERUM 7.2 g/dL (6.0-8.3)
[2022-08-12 17:53] VITALS: BP 114/69
[2022-08-12] MEDS ORDERED: CEPH500B PO (18:11)
== END 2022-08-12 18:47 | disposition home or self-care (01) ==
LOC: EDH 14:36
DX: S63.502A Unspecified sprain of left wrist, initial encounter (principal); N39.0 Urinary tract infection, site not specified; J44.9 Chronic obstructive pulmonary disease, unspecified; E86.0 Dehydration; E11.9 Type 2 diabetes mellitus without complications; E78.00 Pure hypercholesterolemia, unspecified; I10 Essential (primary) hypertension; Z79.01 Long term (current) use of anticoagulants; Z79.82 Long term (current) use of aspirin; Z79.899 Other long term (current) drug therapy; X58.XXXA Exposure to other specified factors, initial encounter; Y93.89 Activity, other specified; Y92.89 Other specified places as the place of occurrence of the external cause; Y99.8 Other external cause status
CPT/HCPCS: 99285; 96360; 70450; 82550; 80053; 85025; 87088; 81001; 36415; 73100; J7030

== ENCOUNTER → 2022-08-29 | Outpatient (CLI) | payer OTHER, MEDICARE ==
[~2022-08-29] MED LIST changes: +CEPH500B PO
== END | disposition home or self-care (01) ==
LOC: SHCH 15:20
PROVIDERS: ATTEND Internal Medicine Cardiovascular Disease
DX: I34.0 Nonrheumatic mitral (valve) insufficiency (principal); I48.20 Chronic atrial fibrillation, unspecified; I10 Essential (primary) hypertension; E11.9 Type 2 diabetes mellitus without complications
CPT/HCPCS: 93306